=== PATIENT | male | born 1995 | race Caucasian/White ===

== ENCOUNTER 2019-06-24 18:55 | Emergency (ER) | payer OTHER, SELFPAY ==
--- NOTE | 2019-06-24 19:06 | ED_ITS ---
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 Patient is up-to-date on his tetanus. MD complaint: knee injury Onset (ago): hour(s) Injury: Left: knee Type of Injury: laceration Place: work Severity: mild Relieving factors: nothing Exacerbating factors: weight bearing and movement Associated symptoms: Reports no associated symptoms Other symptoms: none Review of Systems Skin/Breast: Reports: other (laceration to L knee) Neuro: Denies: numbness in extremities, weakness in extremities or changes in sensation PFSH ED PFSH: Social History Smoking and tobacco status: current every day smoker smokeless tobacco Smokeless tobacco user: chewing tobacco Alcohol intake: never Physical Exam Const: COMMON NORMALS: no apparent distress, average body habitus, oriented x3, no limitations, healthy appearing, alert and well nourished Extremity: OTHER: pt has large 6cm linear laceration to inferomedial knee; laceration is approximately 1cm deep and there is questionable joint capsule involvement; bleeding controlled; pt maintains ROM of knee; no sensory abnormalities detected Neuro: COMMON NORMALS: oriented x3, moves all extremities, no focal motor deficits, no sensory deficits noted and gait normal SENSORIUM/ORIENTATION: Yes alert Skin: OTHER: see extremity assessment Procedures Laceration Laceration 1: Site: lower extremity Side (If applicable): left Size (cm): 6.0 Description: linear and irregular Depth: simple, single layer Local Anesthetic: lidocaine 1% and with epi Amount of anesthesia used (mL): 3.0 Pre-repair: wound explored and irrigated extensively Skin layer closed with: nylon Size (cm): 4-0 Number of sutures: 10 Technique: simple, interrupted Subcutaneous layer closed with: vicryl Size: 5-0 Number of sutures: 7 Technique: simple, interrupted Course Vital Signs: Vital signs: Vital Signs Temperature 97.9 F 06/24/19 19:07 Pulse Rate 79 06/24/19 19:07 Respiratory Rate 16 04/09/20 19:07 Blood Pressure 122/79 06/24/19 19:07 Pulse Oximetry 99 06/24/19 19:07 MDM - Extremity Injury (Lower) Imaging Data^: L knee XR: My impression: no fractures/dislocations present; large soft tissue laceration noted; no free air visualized CT lower extremity knee : Radiologist's impression: [address] [address] [address] Scan Report Signed Patient: Chris Weller Unit #: [id number] : 1995 Age/Sex: 24 / M ADM Date: 06/24/19 Loc: ER Room/Bed: Attending Dr: Ordering Provider/Ordering MD: Joselin Whalen Date of Service: 06/24/19 Procedure(s): CT lower leg LT wo con* [id number] Accession Number(s): [id number] Report Number: [id number] PROCEDURE INFORMATION: Exam: CT Left Lower Extremity Without Contrast, Knee Exam date and time: 06/24/2019 7:56 PM Age: 24 years old Clinical indication: Injury or trauma; Initial encounter; Patella or knee; Without foreign body; Patient HX: Deep laceration from chainsaw to anteriomedial aspect of left knee. ; Additional info: Laceration; Evaluate for joint capsule injury TECHNIQUE: Imaging protocol: CT of the Left lower extremity without contrast was performed. Exam focused on the knee. Total DLP: 228.09 mGy-cm Radiation optimization: All CT scans at this facility use at least one of these dose optimization techniques: automated exposure control; mA and/or kV adjustment per patient size (includes targeted exams where dose is matched to clinical indication); or iterative reconstruction. COMPARISON: CR XR knee LT 3V* [id number] 06/24/2019 7:21 PM FINDINGS: Bones/joints: No joint effusion. No fracture or bone destruction. Incidental bone islands in the medial and lateral femoral condyles. The patellar retinaculum remains intact. Soft tissues: A laceration is noted medial to the patella. The nearby patellar ligament is spared. No radiopaque foreign body. CT/CT lower leg LT wo con* [id number] IMPRESSION: 1. Laceration medial to the patella. 2. No evidence of joint space violation or ligament/tendon injury. No fracture. 3. No radiopaque foreign body. Radiation Dose CTDIVOL = (mGy): DLP = 228.09 (mGy-cm) Dictated By: Roney Menon MD Signed By: Roney Menon MD Signed Date/Time: 06/24/192021 DD/ 19 Discharge Plan Discharge Patient Disposition: Home, Self-Care Clinical Impression: Laceration of knee, left Qualifiers: Encounter type: initial encounter Qualified Code(s): S81.012A - Laceration without foreign body, left knee, initial encounter Condition: Stable Prescriptions: New Keflex 500 mg capsule 500 mg PO Q6H 7 Days Qty: 28 RF: 0 No Action lisinopril 20 mg tablet 20 mg PO QDAY Qty: 30 RF: 0 Discharge Orders: Discharge Order (Routine); Ordered 06/24/19 Ordered By: Joselin Whalen Patient Instructions: Suture Care (ED), Laceration (ED), Suture Removal (ED) Activity Restrictions/Additional Instructions: KEEP CLEAN WITH WARM SOAP AND WATER SEVERAL TIMES DAILY. MONITOR FOR SIGNS OF INFECTION SUCH WORSENING PAIN, REDNESS, SWELLING, OR DRAINAGE. RETURN TO ED IMMEDIATELY IF YOU NOTICED THESE. SUTURES CAN BE REMOVED IN 10 DAYS. Coding Level of Care Code ED Engineering Specialist Technician for Alex Fwd Exam Expanded Problem Focused
[2019-06-24 19:07] VITALS: BP 122/79; PULSE 79; RESP 16; TEMP 36.6; O2SAT 99; BMI 270.9
--- NOTE | 2019-06-24 19:21 | XR_ITS ---
WS: [id number] KNEE LEFT TECHNIQUE: 3 views of the left knee CLINICAL INFORMATION: chainsaw laceration COMPARISON: None. FINDINGS: Soft tissue laceration along the infrapatellar soft tissues. Normal anatomic alignment. No acute frac tures. Soft tissue edema. Normal patella. XR/XR knee LT 3V* [id number] IMPRESSION: Soft tissue laceration. No acute fractures.
[2019-06-24] MEDS: ceFAZolin 1,000 mg SDV 1000 MG IM (19:52)
--- NOTE | 2019-06-24 19:56 | CTR_ITS ---
PROCEDURE INFORMATION: Exam: CT Left Lower Extremity Without Contrast, Knee Exam date and time: 06/24/2019 7:56 PM Age: 24 years old Clinical indication: Injury or trauma; Initial encounter; Patella or knee; Without foreign body; Patient HX: Deep laceration from chainsaw to anteriomedial aspect of left knee. ; Additional info: Laceration; Evaluate for joint capsule injury TECHNIQUE: Imaging protocol: CT of the Left lower extremity without contrast was performed. Exam focused on the knee. Total DLP: 228.09 mGy-cm Radiation optimization: All CT scans at this facility use at least one of these dose optimization techniques: automated exposure control; mA and/or kV adjustment per patient size (includes targeted exams where dose is matched to clinical indication); or iterative reconstruction. COMPARISON: CR XR knee LT 3V* [id number] 06/24/2019 7:21 PM FINDINGS: Bones/joints: No joint effusion. No fracture or bone destruction. Incidental bone islands in the medial and lateral femoral condyles. The patellar retinaculum remains intact. Soft tissues: A laceration is noted medial to the patella. The nearby patellar ligament is spared. No radiopaque foreign body. CT/CT lower leg LT wo con* [id number] IMPRESSION: 1. Laceration medial to the patella. 2. No evidence of joint space violation or ligament/tendon injury. No fracture. 3. No radiopaque foreign body. Radiation Dose CTDIVOL = (mGy): DLP = 228.09 (mGy-cm)
[2019-06-24 21:12] VITALS: BP 136/69; PULSE 62; RESP 18; O2SAT 99
== END 2019-06-24 21:15 | disposition home or self-care (01) ==
PROVIDERS: Emergency Provider Physician Assistant
DX: S81.012A Laceration without foreign body, left knee, initial encounter (principal); W29.3XXA Contact with powered garden and outdoor hand tools and machinery, initial encounter; F17.229 Nicotine dependence, chewing tobacco, with unspecified nicotine-induced disorders; I10 Essential (primary) hypertension
CPT/HCPCS: 12032; 12345; 73562; 73700; 96372; 99281; 99283; J0690; J2001

== ENCOUNTER → 2020-11-10 07:32 | Outpatient (BNVA) | payer OTHER, SELFPAY | PROVIDERS: PCP Family Medicine; Visit Provider Family Medicine Adult Medicine | DX: I10 Essential (primary) hypertension (principal); Z13.6 Encounter for screening for cardiovascular disorders; Z68.26 Body mass index [BMI] 26.0-26.9, adult; F17.229 Nicotine dependence, chewing tobacco, with unspecified nicotine-induced disorders; Z71.89 Other specified counseling | CPT/HCPCS: 80053; 80061; 84443; 85025 ==

== ENCOUNTER → 2022-02-28 13:35 | Outpatient (BNVA) | payer OTHER, SELFPAY | PROVIDERS: PCP Family Medicine; Visit Provider Family Medicine | DX: I10 Essential (primary) hypertension (principal) | CPT/HCPCS: 80053; 80061; 85025 ==